=== PATIENT | male | born 1955 ===

== ENCOUNTER 2018-12-20 12:13 | Observation (INO) | payer SELFPAY ==
[2018-12-20] MEDS ORDERED: ISOVUE-370 76%-LOCM 1 ML ONE (12:57)
[2018-12-20 13:06] LABS: #Basophils 0.1 thou/uL (0.0-0.2); #Eosinphils 0.2 thou/uL (0.0-0.7); #Lymphocytes 2.5 thou/uL (1.20-3.40); #Monocytes 0.4 thou/uL (0.11-0.59); #Neutrophils 4.2 thou/uL (1.40-6.50); %Basophils 0.7 % (0.0-1.0); %Eosinophils 2.4 % (0.0-10.0); %Lymphocytes 33.9 % (21.0-51.0); %Monocytes 5.3 % (0.0-10.0); %Neutrophils 57.7 % (42.0-75.0); Hemoglobin 15.4 g/dL (14.0-18.0); Mean Corpuscular HGB CONC 33.2 g/dL (32.0-36.0); Mean Corpuscular Hemoglobin 33.8 pg (27.0-31.0); Mean Platelet Volume 9.3 fL (7.4-10.4); Platelet Count 248 thou/uL (130-400); RBC Distribution Width 12.9 % (11.5-14.5); Red Blood Cell (RBC) Count 4.56 mill/uL (4.70-6.10); White Blood Cell (WBC) Count 7.3 thou/uL (4.8-10.8)
[2018-12-20] MEDS ORDERED: Nitroglycerin 2% Ointment 1 INCH/1 GM Packet ONE (13:11)
[2018-12-20 13:18] LABS: ALT (SGPT) 29 U/L (8-55); AST (SGOT) 29 U/L (5-34); Albumin 4.4 g/dL (3.4-4.8); Alkaline Phosphatase 60 U/L (40-150); Anion Gap 18 mmol/L (10-20); BUN (Urea Nitrogen) 12 mg/dL (8.4-25.7); Bilirubin, Total 0.3 mg/dL (0.2-1.2); Calc. Creatinine Clearance 0 mL/min (70-130); Calcium 9.3 mg/dL (7.8-10.44); Carbon Dioxide 23 mmol/L (23-31); Chloride 108 mmol/L (98-107); Estimated GFR-MDRD 84; Globulin 2.8 g/dL (2.4-3.5); Glucose 117 mg/dL (80-115); Potassium 3.7 mmol/L (3.5-5.1); Protein, Total 7.2 g/dL (5.8-8.1); Sodium 145 mmol/L (136-145)
--- NOTE | 2018-12-20 13:44 | RAD ---
AP CHEST: Date: 12/20/18 HISTORY: Chest pain. FINDINGS: Lungs show no focal infiltrate or vascular congestion. Heart size within normal range. IMPRESSION: No acute process identified. POS: OFF
--- NOTE | 2018-12-20 15:04 | CT ---
CT AORTOGRAM CHEST AND ABDOMEN WITH CONTRAST: Date: 12/20/18 Axial tomograms obtained following aortogram protocol with multiplanar reconstruction and 3D postproc essing. INDICATION: Sudden chest pain. Question aortic dissection. FINDINGS: Thoracic aorta shows normal opacification. There is no evidence of aneurysm. There is no evidence of dissection. Abdominal aorta is normal caliber. Mild atherosclerotic change seen in the abdominal aorta. No dissec tion. No aneurysmal dilatation. Aortic branches, including celiac artery, superior mesenteric artery, and renal arteries appear unremarkable. Aortic bifurcation is imaged and the proximal common iliac a rteries are unremarkable. The lungs appear clear. Mediastinum is unremarkable. Liver, spleen, and pancreas unremarkable. There is a small sliding diaphragmatic hernia. Adrenal glands and kidneys unremarkable. Bowel loops unremarkable as visualized. IMPRESSION: No evidence of thoracic or abdominal aortic aneurysm or dissection. POS: OFF
[2018-12-20] MEDS ORDERED: Nitroglycerin 0.4 MG TAB (25 Tab Bottle) PO PRN (16:19)
[2018-12-20] MEDS ORDERED: Labetalol HCl 100 MG/20 ML VIAL SLOW IVP PRN (16:27)
[2018-12-20] MEDS ORDERED: Acetaminophen 500 MG TAB PO PRN (16:27)
[2018-12-20] MEDS ORDERED: Ondansetron PF 4 MG/2 ML Vial IVP PRN (16:27)
[2018-12-20] MEDS ORDERED: hydrALAZINE 20 MG/ML VIAL SLOW IVP PRN (16:27)
[2018-12-20] MEDS ORDERED: Multivitamins, Adult 10 ML, Folic Acid 1 MG, Thiamine HCl 100 MG in Dextrose 5 %-0.45 %... IV SCH ×2 (16:30→20:15)
[2018-12-20 16:57] LABS: Troponin I Less than 0.010 ng/mL (< 0.028)
--- NOTE | 2018-12-20 17:24 | CT ---
CT OF LUMBAR SPINE PERFORMED WITHOUT CONTRAST ENHANCEMENT: 12/20/18 HISTORY: Bilateral leg numbness. The bones appear demineralized. The vertebral bodies maintain normal height. There are degenerative o steophytic changes along the spine most pronounced at the L2-3 and L3-4 levels with mild disc narrowi ng at L2-3. No significant periaortic adenopathy. Contrast is still present in the kidneys from a previous CT dis section protocol. T12-L1: Unremarkable. L1-2: Degenerative facet changes. No canal or foraminal stenosis. L2-3: Degenerative facet changes without significant canal or foraminal stenosis. L3-4: The canal shows some borderline narrowing, mainly related to the facet and ligamentous hypertro phic change. L4-5: Borderline canal narrowing without foraminal stenosis. L5-S1: No significant canal or foraminal narrowing. IMPRESSION: No signs of disc herniation or any findings of significant canal or foraminal stenosis. POS: MARITZA
--- NOTE | 2018-12-20 19:25 | HP ---
CHIEF COMPLAINT: Chest pain. HISTORY OF PRESENT ILLNESS: Mr. South is a 63-year-old male with past medical history significant for hypertension, paroxysmal atrial fibrillation, and history of NE in 2006, who presented to the hospital with complaints of chest pain that began this morning. Of note, the patient's plasma alcohol level on arrival to this facility was 217 and he does appear to be intoxicated. The patient states that he has not had anything to drink today, but did drink heavily yesterday. In any case, the patient at this time is not a good historian, and has been somewhat belligerent in giving details about his past medical history, stating that "his PCP in [place] knows all about me." In any case, the patient is here traveling from out of town. This morning, he had some acute onset of substernal chest discomfort, which he describes as a pressure. This was nonexertional and acute onset. He had some associated headache as well as nausea with this discomfort. Because of the severity of his symptoms, he presented to the emergency department for further workup and treatment. On arrival to our facility, EKG showed sinus rhythm, no acute or dynamic ST or T-wave changes, with a ventricular rate of 101. His serial troponin has been negative x2. He underwent CT scan of his chest and abdomen with contrast using aortic dissection protocol, which showed no evidence of thoracic or abdominal aortic aneurysm or dissection. It is somewhat difficult to discern the nature of his chest pain as he is not being entirely cooperative with the interview. He describes his chest discomfort as both a chest pressure and a burning. There is also a reproducibility to his chest pain as he is tender to palpation throughout his chest wall. The patient had an NE in 2006. He states that at that time, they "stopped and started my heart twice." The patient does not know if he has any blockage in his coronary arteries or if he ever had any stents. He does not remember any details regarding his hospitalization in 2006. Other cardiac history includes a history of paroxysmal atrial fibrillation, for which he refused to take Xarelto in the past. He also has refused hypertension medications because he states they make him drowsy. REVIEW OF SYSTEMS: A 12-point review of systems has been performed. The patient has had numerous musculoskeletal injuries and surgical repairs as he has participated in the [employer] for many years and suffered many injuries. Most recently, he states that he was "stepped on by a bull" 5 months ago, which has left him somewhat weak in his legs and he states "my legs gave out on me all the time." He does use a walker for ambulation. Otherwise, 12-point review of systems performed and is negative except that stated above. PAST MEDICAL HISTORY: 1. Previous NE in 2006. 2. Hypertension, noncompliant with antihypertensives. 3. Paroxysmal atrial fibrillation, noncompliant with anticoagulation. 4. Previous CVA. PAST SURGICAL HISTORY: The patient has had numerous orthopedic surgeries on bilateral elbows, shoulders, and hips. He states he has had "nearly 67 surgeries from a life of [facility]." He has a surgical history of spinal surgery as well as cervical spinal repair. SOCIAL HISTORY: The patient states that he drinks daily, approximately 2 whiskeys daily. He does smoke cigarettes daily as well. As mentioned, he made his living in the [place]. He is here with his son-in-law today. The patient lives in [place], and sees a PCP there. 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 ALLERGIES: PENICILLINS. HOME MEDICATIONS: None. PHYSICAL EXAMINATION: VITAL SIGNS: Blood pressure 113/74, pulse is 86, O2 saturation 97% on room air, temperature 97.8, and respirations are 17. GENERAL: This is a male, who appears his stated age and appears to be intoxicated. HEENT: Head is atraumatic and normocephalic. Mucous membranes are moist. He does have mild proptosis. NECK: Trachea is midline. No JVD. CV: S1 and S2. Regular rate and rhythm. No appreciable murmurs, rubs, or gallops. LUNGS: Regular respiratory rate and pattern. Clear to auscultation bilaterally. ABDOMEN: Positive bowel sounds. Soft and nontender. EXTREMITIES: No edema. Warm and well perfused. The patient appears to have some bilateral lower weakness, however, this may be due to noncompliance with my instruction during physical exam. NEUROLOGIC: Cranial nerves 2 through 12 are grossly intact, bilateral lower extremity weakness as outlined above. LABORATORY DATA: White blood cell count 7.3, hemoglobin 15.4, hematocrit 46.4, and platelet count is 248. Sodium 145, potassium 3.7, chloride 108, carbon dioxide 23, BUN 12, creatinine 0.91, glucose 117, AST 29, ALT 29, and alkaline phosphatase 60. Troponin negative x2. Plasma alcohol level is 217. ASSESSMENT: 1. Chest pain, acute coronary syndrome has been ruled out, unclear etiology at this time. 2. History of previous myocardial infarction in 2006, unclear if any intervention was performed or degree of coronary artery disease. 3. Presumed coronary artery disease. 4. Alcohol intoxication, with plasma alcohol level 217 at presentation 5. Paroxysmal atrial fibrillation, currently in sinus rhythm, CHADS-VASc equals 4. 6. Previous cerebrovascular accident. 7. Hypertension, noncompliant with antihypertensives. 8. Bilateral lower extremity weakness, unclear if related to recent back injury or his current alcohol intoxication. PLAN: At this time, we will admit the patient for chest pain rule out. Given his risk factors, we will further risk stratify with nuclear stress test. We will continue p.r.n. nitrates as well as aspirin. We will obtain a fasting lipid panel in the morning. I will get a CT of his lumbar spine to assess for any gross injury given his history of leg weakness and difficulty with ambulation. Regarding his alcohol abuse, we will provide IV fluid resuscitation with banana bag as well as p.r.n. Ativan. I will also get Physical Therapy to assess the patient in the morning when he is no longer intoxicated. Further recommendations based on findings of noninvasive testing. Job ID: [id number] [facility]
[2018-12-20 19:39] LABS: Troponin I Less than 0.010 ng/mL (< 0.028)
[2018-12-20 20:06] VITALS: BMI 27.3
[2018-12-20] MEDS: Ketorolac Tromethamine 30 MG/ML VIAL IVP SCH (20:40)
[2018-12-20] MEDS: Lorazepam 0.5 MG TAB PO PRN (20:41)
[2018-12-21] MEDS: Aspirin 81 mg Enteric Coated Tablet PO SCH (08:04)
[2018-12-21] MEDS: Lorazepam 0.5 MG TAB PO PRN ×3 (11:31→21:20)
--- NOTE | 2018-12-21 12:18 | NM ---
EXAM: Nuclear medicine cardiac SPECT with EF and wall motion: HISTORY: Chest pain Protocol: Exam was performed using adenosine protocol. The patient is injected with30.6 millicuries of technetium 99m sestamibi intravenously for stress yaakov ges. The patient is injected with11.0 millicuries of technetium 99 sestamibi intravenously for resting yaakov ges. Multiple SPECT images are performed in the short axis, vertical long axis, and horizontal long axis. FINDINGS: No scan evidence for infarct or ischemia. TID:1.16 LHR:0.44 EDV:169 mL EF:44% Wall motion:Unremarkable IMPRESSION: No scan evidence for ischemia. Elevated EDV. Ejection fraction-44%.
[2018-12-21] MEDS: traMADol HCl 50 MG TAB PO PRN ×2 (13:37→21:20)
[2018-12-21] MEDS ORDERED: Ketorolac Tromethamine 10 MG TAB PO PRN (13:40)
[2018-12-21] MEDS ORDERED: Lisinopril 20 MG TAB PO SCH (13:45)
--- NOTE | 2018-12-21 13:57 | PDOC.HOSPP ---
- Subjective Encounter Date: 12/21/18 Encounter Time: 13:42 Subjective: pt up in bed states he has cp which is reproducible on palpation - Objective Vital Signs & Weight: Vital Signs (12 hours) Temp Pulse Resp BP BP Pulse Ox 12/21/18 11:36 97.5 F L 96 18 164/92 H 100 12/21/18 07:53 97.5 F L 65 18 162/87 H 99 12/21/18 04:40 97.5 F L 66 14 143/95 H 96 Weight Weight 212 lb 11.2 oz I&O: 12/20/18 12/21/18 12/22/18 06:59 06:59 06:59 Intake Total 1620 Balance 1620 Result Diagrams: 12/20/18 12:54 12/20/18 12:54 Hospitalist ROS - Medication Medications: Active Medications Generic Name Dose Route Start Last Admin Trade Name Freq PRN Reason Stop Dose Admin Acetaminophen 1,000 mg 12/20/18 16:27 12/21/18 08:04 Tylenol PO 1,000 mg Q6H PRN Administration Mild Pain (1-3) Aspirin 81 mg 12/21/18 09:00 12/21/18 08:04 Ecotrin PO 81 mg DAILY APRIL Administration Ketorolac Tromethamine 15 mg 12/20/18 19:45 12/20/18 20:40 Toradol IVP 12/25/18 21:00 15 mg NOW APRIL Administration Lorazepam 0.5 mg 12/20/18 16:31 12/21/18 11:31 Ativan PO 0.5 mg Q6H PRN Administration Alcohol Withdrawal Tramadol HCl 50 mg 12/21/18 13:22 12/21/18 13:37 Ultram PO 50 mg Q6H PRN Administration Pain
[2018-12-21] MEDS ORDERED: Furosemide 20 MG TAB PO SCH (14:15)
--- NOTE | 2018-12-21 16:20 | CT ---
Exam: Head CT without contrast HISTORY: Status post fall. Hit head on toilet. COMPARISON: none FINDINGS: Hemorrhage: No intraparenchymal hemorrhage or extra-axial hematoma. Brain parenchyma: Cortical pittman-white matter differentiation is preserved. No mass effect or midline shift. Basilar cisterns are patent. Ventricular system: Ventricles and sulci are patent and symmetric. Calvarium: Intact. Sinuses and mastoid air cells: Adequate aeration. IMPRESSION: No acute intracranial posttraumatic sequelae
--- NOTE | 2018-12-21 16:51 | DIS ---
DATE OF ADMISSION: 12/20/2018 DATE OF DISCHARGE: 12/21/2018 DISCHARGE DIAGNOSES: 1. Chest pain. 2. History of myocardial infarction. 3. Hypertension. 4. Chronic lower extremity weakness from previous injury. HOSPITAL COURSE: The patient is a 63-year-old male, who initially presented to the hospital on 12/20 with complaints of chest pain. The patient is out of town and he was found also to have high alcohol level of 217. The patient's troponins x3 were negative. EKG showed sinus rhythm, no significant ST or T wave changes. He does have some Q-waves. He did have a CT chest, abdomen, and pelvis for dissection, which was negative for dissection. He did undergo a stress test. 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 Now, he does not recall his previous ejection fraction. Stress test indicated a TID of 1.16 and no scan evidence of ischemia. EF was 44%. Wall motion was unremarkable. The patient still had chest pain, however, this chest pain was reproducible on palpation. I have provided the patient with some pain medications. The patient initially stated that he wanted to stay overnight since he does not have a ride. However, medically the patient has been stable and he will be discharged. I have advised him to follow up with his primary care doctor and also with professor of education. The patient does not take any medications. I have written him some medications, which is Coreg 12.5 twice a day and lisinopril 20 mg daily and also aspirin 81 mg daily. PHYSICAL EXAMINATION: VITAL SIGNS: Temperature of 97.8, pulse 96, respiratory rate 18, oxygen saturation 100% on room air, and blood pressure 164/92. GENERAL: He is awake, alert, and oriented x3. Does not appear in any distress. CARDIOVASCULAR: S1 and S2 present. No murmurs, rubs, or gallops. ABDOMEN: Soft and nontender. Bowel sounds are present x2. Also, I have told him to refrain from alcohol use, which he was not very happy about. He will follow up with his primary care doctor and also with Cardiology. Job ID: [id number]
[2018-12-21] MEDS ORDERED: ADENOSINE 60 MG/20 ML VIAL ONE (16:56)
[2018-12-21] MEDS: Carvedilol 6.25 MG TAB PO SCH (17:23)
[2018-12-21] MEDS: Ketorolac Tromethamine 30 MG/ML VIAL IVP SCH (21:21)
[2018-12-22] MEDS ORDERED: Lisinopril 20 MG TAB PO SCH (09:00)
[2018-12-22] MEDS: Carvedilol 6.25 MG TAB PO SCH (09:35)
[2018-12-22] MEDS: Aspirin 81 mg Enteric Coated Tablet PO SCH (09:37)
[2018-12-22] MEDS: traMADol HCl 50 MG TAB PO PRN (09:38)
[2018-12-22 11:44] VITALS: BP 171/95; TEMP 97.9
[2018-12-22] MEDS: Lorazepam 0.5 MG TAB PO PRN (12:01)
== END 2018-12-22 13:29 | disposition home or self-care (01) ==
LOC: ERS 12:13 → 2NO 15:15
PROVIDERS: ADMIT Internal Medicine; ATTEND Internal Medicine
DX: R07.89 Other chest pain (principal); F10.129 Alcohol abuse with intoxication, unspecified; I10 Essential (primary) hypertension; I48.91 Unspecified atrial fibrillation; F17.210 Nicotine dependence, cigarettes, uncomplicated; R53.1 Weakness; Y90.7 Blood alcohol level of 200-239 mg/100 ml; Z86.73 Personal history of transient ischemic attack (TIA), and cerebral infarction without residual deficits; Z88.0 Allergy status to penicillin; Z91.14 Patient's other noncompliance with medication regimen; Z91.81 History of falling
CPT/HCPCS: 36415; 70450; 71045; 71275; 72131; 72191; 74175; 78452; 80053; 80061; 80307; 84484; 85025; 93005; 93017; 94760; 96374; A9500; G0378; J0153; J1885; J3411; J7042; Q9966

== ENCOUNTER 2018-12-24 14:14 | Emergency (ER) | payer SELFPAY ==
--- NOTE | 2018-12-24 14:47 | RAD ---
XR Chest 1 View Portable History: Chest pain Comparison: Radiograph December 20, 2018 Findings: Heart size is enlarged. Mild pulmonary venous congestion. Trace effusions. No pneumothorax. No acute osseous abnormality. Impression: Findings of mild congestive heart failure.
[2018-12-24 14:50] LABS: #Basophils 0.1 thou/uL (0.0-0.2); #Eosinphils 0.1 thou/uL (0.0-0.7); #Lymphocytes 1.6 thou/uL (1.20-3.40); #Monocytes 0.4 thou/uL (0.11-0.59); #Neutrophils 5.4 thou/uL (1.40-6.50); %Basophils 0.7 % (0.0-1.0); %Eosinophils 0.8 % (0.0-10.0); %Lymphocytes 21.2 % (21.0-51.0); %Monocytes 5.8 % (0.0-10.0); %Neutrophils 71.6 % (42.0-75.0); Hemoglobin 16.1 g/dL (14.0-18.0); Mean Corpuscular Hemoglobin 33.5 pg (27.0-31.0); Mean Corpuscular Volume 98.7 fL (78.0-98.0); Mean Platelet Volume 9.8 fL (7.4-10.4); Platelet Count 210 thou/uL (130-400); RBC Distribution Width 12.6 % (11.5-14.5); Red Blood Cell (RBC) Count 4.81 mill/uL (4.70-6.10); White Blood Cell (WBC) Count 7.6 thou/uL (4.8-10.8)
[2018-12-24 15:10] LABS: Acetaminophen Less than 6.0 mcg/mL (10.0-30.0); Alcohol Less than 10 mg/dL (Less than 10); CK (CPK) 34 U/L (30-200); Lipase 21 U/L (8-78); Salicylate Less than 8.0 mg/dL (15.0-30.0)
[2018-12-24] MEDS ORDERED: methylPREDNISolone Sod Succ/PF 125 MG/2 ML VIAL ONE (15:10)
[2018-12-24 15:12] LABS: ALT (SGPT) 24 U/L (8-55); AST (SGOT) 25 U/L (5-34); Albumin 4.6 g/dL (3.4-4.8); Alkaline Phosphatase 67 U/L (40-150); Anion Gap 17 mmol/L (10-20); BUN (Urea Nitrogen) 9 mg/dL (8.4-25.7); Calc. Creatinine Clearance 0 mL/min (70-130); Calcium 9.9 mg/dL (7.8-10.44); Carbon Dioxide 22 mmol/L (23-31); Chloride 102 mmol/L (98-107); Estimated GFR-MDRD 86; Globulin 2.9 g/dL (2.4-3.5); Glucose 102 mg/dL (80-115); Potassium 4.2 mmol/L (3.5-5.1); Protein, Total 7.5 g/dL (5.8-8.1); Sodium 137 mmol/L (136-145)
--- NOTE | 2018-12-24 15:43 | CT ---
CT PULMONARY ANGIOGRAM WITH IV CONTRAST AND 3D POSTPROCESSIN12/24/18 HISTORY: Chest pain. FINDINGS: No filling defects are seen in the pulmonary arterial vasculature to suggest pulmonary embolus. No pl eural, pericardial effusions are seen. There are calcified granuloma in the right lung base. There ar e dependent changes in the lung base. A small hiatal hernia is present. There are degenerative change s in the spine. IMPRESSION: No CT evidence of pulmonary embolus. POS: OFF
== END 2018-12-24 16:15 | disposition home or self-care (01) ==
LOC: ERS 14:14
DX: J44.9 Chronic obstructive pulmonary disease, unspecified (principal); I25.2 Old myocardial infarction; I10 Essential (primary) hypertension; F17.220 Nicotine dependence, chewing tobacco, uncomplicated; Z86.73 Personal history of transient ischemic attack (TIA), and cerebral infarction without residual deficits
CPT/HCPCS: 71045; 71275; 80053; 80307; 82550; 83690; 83880; 84484; 85025; 85379; 93005; 94640; 96374; J2930; J7620